=== PATIENT | female | born 1975 | race Caucasian/White ===

== ENCOUNTER 2022-01-26 12:16 | Emergency (ER) | payer OTHER, SELFPAY ==
[2022-01-26 12:32] VITALS: BP 149/87; PULSE 77; RESP 18; TEMP 37.5; O2SAT 99
--- NOTE | 2022-01-26 12:44 | ED.EAR ---
HPI - Ear Problem General Chief complaint: Ear Stated complaint: Left Ear Irritation Time Seen by Provider: 01/26/22 12:40 Source: patient Mode of arrival: ambulatory Limitations: no limitations History of Present Illness HPI Narrative: Ms. Carpio is a 46-year-old female patient presenting to clinic today with complaints of left ear discomfort. She reports that she felt as though something was in her ear yesterday and has been using a Q-tip in her finger to get something out. Had noticed a little bit of blood in her ear and some crusting this morning Related Data Home Medications Medication Instructions Recorded Confirmed No Home Medications 01/26/22 01/26/22 Allergies Allergy/AdvReac Type Severity Reaction Status Date / Time No Known Allergies Allergy Verified 01/26/22 12:44 Review of Systems Review of Systems: Pertinent positives per HPI. Patient denies any fever, chills, rash, headache, visual changes, dizziness, cough, runny nose, sore throat, shortness of breath, chest pain, palpitations, nausea, vomiting, diarrhea, constipation, abdominal pain, or any urinary issues. PMFSH Comments At the time of my signature, I reviewed and agree with the nursing past medical, surgical, social, and family history. There is no relevant family history pertinent to the patient complaint. Exam Narrative: General: Well-developed, well nourished, in no apparent distress Head: Normocephalic, atraumatic Eyes: Pupils equally round and reactive to light bilaterally, EOM intact, sclera and conjunctive clear, no discharge, lids normal Ears: TMs intact and clear, right ear canals clear, left ear canal with small bumps area that has been abraded, no drainage, grossly hearing normal. Nose: Nares patent, no discharge, no inflammation, no sinus tenderness. Mouth: Oropharynx without lesions or masses, good dentition, MMM. Neck: Supple, trachea midline, no enlargement of anterior or posterior cervical nodes, no thyroid masses or goiter palpable. Cardio: Regular rate and rhythm, s1 and s2 normal, no murmur appreciated. Resp: Clear to auscultation bilaterally anteriorly and posteriorly, no rhonchi, rales, wheezing or rubs Course Course Emergency Course: Portions of this record may have been created with voice recognition software. Level of Care: Express Care Visit Vital Signs Vital signs: Vital Signs Temperature 37.5 C 01/26/22 12:32 Pulse Rate 77 01/26/22 12:32 Respiratory Rate 18 01/26/22 12:32 Blood Pressure 149/87 H 01/26/22 12:32 Pulse Oximetry 99 01/26/22 12:32 Oxygen Delivery Room Air 01/26/22 12:32 Temperature 37.5 C 01/26/22 12:32 Pulse Rate 77 01/26/22 12:32 Respiratory Rate 18 01/26/22 12:32 Blood Pressure 149/87 H 01/26/22 12:32 Pulse Oximetry 99 01/26/22 12:32 Oxygen Delivery Room Air 01/26/22 12:32 Vital signs reviewed Medical Decision Making MDM Narrative Medical decision making narrative: at the time of the patient is resting comfortably on the exam table. Appears that she has some irritation to the left ear canal. Supportive measures were discussed with the patient she voiced understanding of discharge instructions agreed to the treatment plan. Differential Diagnosis Differential Diagnosis: Otitis media, otitis externa, eustachian tube dysfunction, ear trauma Vital Signs Vital Signs: Vital Signs Temperature 37.5 C 01/26/22 12:32 Pulse Rate 77 01/26/22 12:32 Respiratory Rate 18 01/26/22 12:32 Blood Pressure 149/87 H 01/26/22 12:32 Pulse Oximetry 99 01/26/22 12:32 Oxygen Delivery Room Air 01/26/22 12:32 Temperature 37.5 C 01/26/22 12:32 Pulse Rate 77 01/26/22 12:32 Respiratory Rate 18 01/26/22 12:32 Blood Pressure 149/87 H 01/26/22 12:32 Pulse Oximetry 99 01/26/22 12:32 Oxygen Delivery Room Air 01/26/22 12:32 Discharge Plan Discharge Clinical Impression: Irritation of external ear canal
== END 2022-01-26 12:46 | disposition home or self-care (01) ==
PROVIDERS: Emergency Provider Nurse Practitioner Family; PCP Family Medicine
DX: H92.02 Otalgia, left ear (principal)
CPT/HCPCS: 99202; G0463